=== PATIENT | female | born 1990 | race American Indian/Alaskan Native ===

== ENCOUNTER 2016-11-23 14:11 | Emergency (ER) | payer MEDICAID, OTHER ==
[2016-11-23 14:31] VITALS: BP 121/56
[2016-11-23] MEDS ORDERED: TORADOL IM ONE ×2 (15:21→15:50)
--- NOTE | 2016-11-23 15:42 | Emergency Department Report ---
ED General Adult HPI - General Chief complaint: Fall Stated complaint: MINO/BACK PAIN Time Seen by Provider: 11/23/16 15:02 Source: patient Mode of arrival: Ambulatory Limitations: No Limitations - History of Present Illness Initial comments: 26 year old female states that she slipped and fell, hitting her head and thoracic spine against the floor. states that she didnt have loc, NV, tinnitus. states intermittent headaches as well that are resolving. states that she is also having thoracic pain that radiates to her left chest region with chest tenderness. denies other injury. states that she is still sore today but not as bad. states taking otc medication with minor relief. -: Sudden, days(s) (7) Associated Symptoms: headaches. denies: confusion, cough, diaphoresis, fever/ chills, loss of appetite, malaise, nausea/vomiting, rash, seizure, shortness of breath, syncope, weakness - Related Data Home Medications Medication Instructions Recorded Confirmed Last Taken Meloxicam [Mobic] 15 mg PO DAILY 12/26/12 12/26/12 12/26/12 08:00 Previous Rx's Medication Instructions Recorded Last Taken Type Acetaminophen/Codeine [Tylenol #3] 1 tab PO Q6H PRN #12 tab 12/26/12 Unknown Rx Polymyxin B Sulf/Trimethoprim 1 drop OP QID #1 bottle 12/26/12 Unknown Rx [Polytrim Eye Drops 99440pzbpk/0.1%] Prednisone 2 tab PO QDAY #6 tablet 12/26/12 Unknown Rx Cyclobenzaprine [Flexeril] 10 mg PO TID PRN #20 tablet 11/23/16 Unknown Rx Diclofenac Sodium 75 mg PO BID #20 tablet. 11/23/16 Unknown Rx Allergies Allergy/AdvReac Type Severity Reaction Status Date / Time No Known Allergies Allergy Verified 11/23/16 14:18 ED Review of Systems ROS: Stated complaint: MINO/BACK PAIN Other details as noted in HPI Constitutional: denies: chills, fever Eyes: denies: eye pain, eye discharge, vision change ENT: denies: ear pain, throat pain Respiratory: denies: cough, shortness of breath, wheezing Cardiovascular: denies: chest pain, palpitations Endocrine: no symptoms reported Gastrointestinal: denies: abdominal pain, nausea, diarrhea Genitourinary: denies: urgency, dysuria, discharge Musculoskeletal: back pain, myalgia. denies: joint swelling, arthralgia Skin: denies: rash, lesions Neurological: headache. denies: weakness, paresthesias Psychiatric: denies: anxiety, depression Hematological/Lymphatic: denies: easy bleeding, easy bruising ED Past Medical Hx - Past Medical History Previous Medical History?: Yes Hx Arthritis: Yes (bilateral knees) Additional medical history: Spine fracture - Surgical History Past Surgical History?: No - Social History Smoking Status: Never Smoker Substance Use Type: Alcohol, Prescribed - Medications Home Medications: Home Medications Medication Instructions Recorded Confirmed Last Taken Type Acetaminophen/Codeine [Tylenol #3] 1 tab PO Q6H PRN #12 tab 12/26/12 Unknown Rx Meloxicam [Mobic] 15 mg PO DAILY 12/26/12 12/26/12 12/26/12 08:00 History Polymyxin B Sulf/Trimethoprim 1 drop OP QID #1 bottle 12/26/12 Unknown Rx [Polytrim Eye Drops 80747vpmum/0.1%] Prednisone 2 tab PO QDAY #6 tablet 12/26/12 Unknown Rx Cyclobenzaprine [Flexeril] 10 mg PO TID PRN #20 tablet 11/23/16 Unknown Rx Diclofenac Sodium 75 mg PO BID #20 tablet. 11/23/16 Unknown Rx ED Physical Exam - General Limitations: No Limitations General appearance: alert, in no apparent distress - Head Head exam: Present: atraumatic, normocephalic - Eye Eye exam: Present: normal appearance, PERRL. Absent: scleral icterus, periorbital swelling, periorbital tenderness - ENT ENT exam: Present: mucous membranes moist - Neck Neck exam: Present: normal inspection, full ROM. Absent: tenderness, lymphadenopathy, thyromegaly - Respiratory Respiratory exam: Present: normal lung sounds bilaterally, chest wall tenderness (left lateral chest wall point tenderness.). Absent: respiratory distress, wheezes, rales, rhonchi, stridor - Cardiovascular Cardiovascular Exam: Present: regular rate, normal rhythm. Absent: systolic murmur, diastolic murmur, rubs, gallop - GI/Abdominal GI/Abdominal exam: Present: soft, normal bowel sounds - Extremities Exam Extremities exam: Present: normal inspection - Back Exam Back exam: Present: normal inspection, full ROM, tenderness, paraspinal tenderness, vertebral tenderness (thoracic spine.) - Neurological Exam Neurological exam: Present: alert, oriented X3 - Psychiatric Psychiatric exam: Present: normal affect, normal mood - Skin Skin exam: Present: warm, dry, intact, normal color. Absent: rash ED Course Vital Signs 11/23/16 14:19 Temperature 98.4 F Pulse Rate 60 Respiratory 18 Rate Blood Pressure 121/56 O2 Sat by Pulse 100 Oximetry ED Medical Decision Making - Radiology Data Radiology results: image reviewed interpreted by me: thoracic XR is normal. - Medical Decision Making patient has normal thoracic XR. lung sounds are clear. VSS and NAD at this time. will start on diclofenac and flexeril. VSS for DC. Critical care attestation.: If time is entered above; I have spent that time in minutes in the direct care of this critically ill patient, excluding procedure time. ED Disposition Clinical Impression: Thoracic myofascial strain, Costal chondritis Disposition: DC- TO HOME OR SELFCARE Is pt being admited?: No Does the pt Need Aspirin: No Condition: Good Instructions: Muscle Strain (ED) Prescriptions: Cyclobenzaprine [Flexeril] 10 mg PO TID PRN #20 tablet PRN Reason: Muscle Spasm Diclofenac Sodium 75 mg PO BID #20 tablet. Referrals: PRIMARY CARE, [Primary Care Provider] - 3-5 Days Forms: Work/School Release Form(ED) Time of Disposition: 15:49
--- NOTE | 2016-11-23 16:12 | XRay Report ---
THORACIC SPINE RADIOGRAPHS INDICATION: Fall, vertebral tenderness. Upper back pain, shortness of breath. COMPARISON: None similar. FINDINGS: AP and lateral views to evaluate thoracic spine demonstrate preserved vertebral body stature and alignment. Normal disc heights. Symmetric pedicles. Intact costovertebral articulations. No abnormal paraspinal density. Normal imaged heart. Clear visualized lungs. CONCLUSION: Normal thoracic spine radiographs, as described. Thank you for the opportunity to participate in this patient's care.
== END 2016-11-23 15:55 | disposition home or self-care (01) ==
LOC: ED 14:11
DX: S29.012A Strain of muscle and tendon of back wall of thorax, initial encounter (principal); M94.0 Chondrocostal junction syndrome [Tietze]; M13.862 Other specified arthritis, left knee; M13.861 Other specified arthritis, right knee; W18.09XA Striking against other object with subsequent fall, initial encounter; Y93.89 Activity, other specified; Y99.8 Other external cause status; Y92.89 Other specified places as the place of occurrence of the external cause
CPT/HCPCS: 72072; 96372; 99283; J1885

== ENCOUNTER 2017-10-10 10:43 | Emergency (ER) | payer OTHER ==
[2017-10-10 10:54] VITALS: BP 108/74
[2017-10-10] MEDS ORDERED: PEPCID PO ONE (11:20)
[2017-10-10] MEDS ORDERED: DECADRON IM ONE (11:20)
--- NOTE | 2017-10-10 11:33 | Emergency Department Report ---
ED Rash HPI - HPI Duration: 4 Days Rash Symptoms: Yes Itching, No Facial Swelling, No Tongue/Oral Swelling, No Breathing Difficulties, No Choking Sensation, No Wheezing/Dyspnea, No Peeling, No Blistering, No Fever, No Lightheaded, No Malaise, No Myalgias Other History: This is a 27-year-old female nontoxic, well nourished in appearance, no acute signs of distress presents to the ED with c/o of rash and itching x4 days. Patient states she was taking Flagyl 4 days ago and developed this. Patient states it is itching and redness. Patient denies any drooling, hoarseness or facial swelling. Patient denies any trauma. She denies any fever , chills, nausea, vomiting, chest pain, shortness of breath, headache, stiff neck, numbness or tingling. Patient denies any allergies. Denies significant PMH. <SERGIO CANNON - Last Filed: 10/10/17 11:20> <JOSE CORLEY - Last Filed: 10/10/17 17:02> - HPI Chief Complaint: Skin Rash Stated Complaint: ALLERGIC REACTION/SWOLLEN RIGHT HAND Time Seen by Provider: 10/10/17 10:45 ED Review of Systems ROS: Stated complaint: ALLERGIC REACTION/SWOLLEN RIGHT HAND Other details as noted in HPI Constitutional: denies: chills, fever Eyes: denies: eye pain, eye discharge, vision change ENT: denies: ear pain, throat pain Respiratory: denies: cough, shortness of breath, wheezing Cardiovascular: denies: chest pain, palpitations Endocrine: no symptoms reported Gastrointestinal: denies: abdominal pain, nausea, diarrhea Genitourinary: denies: urgency, dysuria, discharge Musculoskeletal: denies: back pain, joint swelling, arthralgia Skin: rash. denies: lesions Neurological: denies: headache, weakness, paresthesias Psychiatric: denies: anxiety, depression Hematological/Lymphatic: denies: easy bleeding, easy bruising <SERGIO CANNON - Last Filed: 10/10/17 11:20> ROS: Stated complaint: ALLERGIC REACTION/SWOLLEN RIGHT HAND Other details as noted in HPI <JOSE CORLEY - Last Filed: 10/10/17 17:02> ED Past Medical Hx - Past Medical History Hx Arthritis: Yes (bilateral knees) Additional medical history: Spine fracture - Surgical History Past Surgical History?: No - Social History Smoking Status: Never Smoker Substance Use Type: None <SERGIO CANNON - Last Filed: 10/10/17 11:20> <JOSE CORLEY - Last Filed: 10/10/17 17:02> - Medications Home Medications: Home Medications Medication Instructions Recorded Confirmed Last Taken Type Acetaminophen/Codeine [Tylenol #3] 1 tab PO Q6H PRN #12 tab 12/26/12 Unknown Rx Meloxicam [Mobic] 15 mg PO DAILY 12/26/12 12/26/12 12/26/12 08:00 History Polymyxin B Sulf/Trimethoprim 1 drop OP QID #1 bottle 12/26/12 Unknown Rx [Polytrim Eye Drops 75627vxrag/0.1%] Prednisone 2 tab PO QDAY #6 tablet 12/26/12 Unknown Rx Cyclobenzaprine [Flexeril] 10 mg PO TID PRN #20 tablet 11/23/16 Unknown Rx Diclofenac Sodium 75 mg PO BID #20 tablet.dr 11/23/16 Unknown Rx Prednisone [predniSONE 10 mg 10 mg PO .TAPER #1 tab.ds.pk 10/10/17 Unknown Rx (6-Day Pack, 21 Tabs)] diphenhydrAMINE [Benadryl CAP] 25 mg PO Q6HR PRN #25 capsule 10/10/17 Unknown Rx Rash Exam - Exam General: Vital signs noted. No distress. Alert and acting appropriately. HEENT: No Periorbital Edema, No Conjuctival Injection, No Chemosis, No Perioral Edema, No Tongue Edema, No Uvular Edema, No Compromised Airway, No Drooling Lungs: Yes Good Air Exchange (Normal Breath Sounds), No Wheezes, No Ronchi, No Stridor, No Cough, No Labored Respirations, No Retractions, No Use of Accessory Muscles, No Other Abnormal Lung Sounds Heart: Yes Regular, No Murmur Skin: Yes Urticarial Rash, No Maculopapular Rash, No Morbilliform rash, No Bulla (e), No Excoriations, No Weeping, No Tenderness, No Erythema, No Edema, No Encrustations, No Other Other: Positive: Abdomen Normal, Neurologic Normal, Musculoskeletal Normal <SERGIO CANNON - Last Filed: 10/10/17 11:20> - Exam General: Vital signs noted. No distress. Alert and acting appropriately. <JOSE CORLEY - Last Filed: 10/10/17 17:02> ED Course Vital Signs 10/10/17 10:49 Temperature 98.2 F Pulse Rate 94 H Blood Pressure 108/74 O2 Sat by Pulse 100 Oximetry - Reevaluation(s) Reevaluation #1: 10/10/17 11:34 Patient is speaking in full sentences with no signs of distress noted. <SERGIO CANNON - Last Filed: 10/10/17 11:20> Vital Signs 10/10/17 10:49 Temperature 98.2 F Pulse Rate 94 H Blood Pressure 108/74 O2 Sat by Pulse 100 Oximetry <JOSE CORLEY - Last Filed: 10/10/17 17:02> ED Medical Decision Making - Medical Decision Making This is a 27-year-old female that presents with allergic reaction. Patient is stable was examined by me. There is no facial swelling. No angioedema. There is no cellulitis. No hoarseness. Patient received Decadron, and Pepcid in the ED IV. Patient is discharged with prednisone and Benadryl. Patient was referred to Follow-up with a primary care doctor in 3-5 days or if symptoms worsen and continue return to emergency room as soon as possible. At time of discharge, the patient does not seem toxic or ill in appearance. No acute signs of distress noted. Patient agrees to discharge treatment plan of care. No further questions noted by the patient. <SERGIO CANNON - Last Filed: 10/10/17 11:20> - Medical Decision Making I did not see this patient. I was available for consultation the entire time the patient was in the department. I have reviewed the C[facility] MESS/PAs note and agree with the plan. <JOSE CORLEY - Last Filed: 10/10/17 17:02> Critical care attestation.: If time is entered above; I have spent that time in minutes in the direct care of this critically ill patient, excluding procedure time. <SERGIO CANNON - Last Filed: 10/10/17 11:20> Critical care attestation.: If time is entered above; I have spent that time in minutes in the direct care of this critically ill patient, excluding procedure time. <JOSE CORLEY - Last Filed: 10/10/17 17:02> ED Disposition Is pt being admited?: No Does the pt Need Aspirin: No <SERGIO CANNON - Last Filed: 10/10/17 11:20> <JOSE CORLEY - Last Filed: 10/10/17 17:02> Disposition: DC-01 TO HOME OR SELFCARE Condition: Stable Instructions: Urticaria (ED) Additional Instructions: Follow-up with a primary care doctor in 3-5 days or if symptoms worsen and continue return to emergency room as soon as possible. Prescriptions: diphenhydrAMINE [Benadryl CAP] 25 mg PO Q6HR PRN #25 capsule PRN Reason: Itching Prednisone [predniSONE 10 mg (6-Day Pack, 21 Tabs)] 10 mg PO .TAPER #1 tab.ds.pk Referrals: PRIMARY CAREMD [Primary Care Provider] - 3-5 Days JOSE FORD MD [Staff Physician] - 3-5 Days [facility] [Outside] - 3-5 Days [facility] [Outside] - 3-5 Days Forms: Work/School Release Form(ED)
== END 2017-10-10 11:41 | disposition home or self-care (01) ==
LOC: ED 10:43
DX: T78.40XA Allergy, unspecified, initial encounter (principal); M17.0 Bilateral primary osteoarthritis of knee; X58.XXXA Exposure to other specified factors, initial encounter
CPT/HCPCS: 96372; 99282; J1100

== ENCOUNTER 2018-11-18 17:26 | Emergency (ER) | payer SELFPAY ==
--- NOTE | 2018-11-18 17:54 | Emergency Department Report ---
Blank Doc - Documentation Documentation: This is a 28-year-old female that presents with lower back pain. This initial assessment/diagnostic orders/clinical plan/treatment(s) is/are subject to change based on patient's health status, clinical progression and re- assessment by fellow clinical providers in the ED. Further treatment and workup at subsequent clinical providers discretion. Patient/guardians urged not to elope from the ED as their condition may be serious if not clinically assessed and managed. Initial orders include: 1- Patient sent to [facility] for further evaluation and treatment 2- xray
[2018-11-18 17:55] VITALS: BP 112/68
--- NOTE | 2018-11-18 18:53 | XRay Report ---
LUMBAR SPINE 3 VIEWS. INDICATION / CLINICAL INFORMATION: low back pain COMPARISON: None available. FINDINGS: BONES / JOINT(S): No acute fracture or subluxation. No significant arthritis. SOFT TISSUES: No significant abnormality. ADDITIONAL FINDINGS: None. Signer Name: Nir Patricio MD Signed: 11/18/2018 6:48 PM Workstation Name: [id number]
[2018-11-18] MEDS ORDERED: PERCOCET 5/325 PO STA (22:27)
--- NOTE | 2018-11-18 22:40 | Emergency Department Report ---
ED Back Pain/Injury HPI - General Chief Complaint: Back Pain/Injury Stated Complaint: BACK/SPINE PAIN/SOB Time Seen by Provider: 11/18/18 17:53 Source: patient Limitations: No Limitations - History of Present Illness Complaint: back pain -: Gradual Similar Symptoms Previously: No Place: home Radiation: none Severity: moderate Consistency: constant Improves With: none Worsens With: movement, sitting upright, walking Associated Symptoms: denies other symptoms - Related Data Home Medications Medication Instructions Recorded Confirmed Last Taken Meloxicam [Mobic] 15 mg PO DAILY 12/26/12 12/26/12 12/26/12 08:00 Previous Rx's Medication Instructions Recorded Last Taken Type Acetaminophen/Codeine [Tylenol #3] 1 tab PO Q6H PRN #12 tab 12/26/12 Unknown Rx Polymyxin B Sulf/Trimethoprim 1 drop OP QID #1 bottle 12/26/12 Unknown Rx [Polytrim Eye Drops 66432pafhi/0.1%] Prednisone 2 tab PO QDAY #6 tablet 12/26/12 Unknown Rx Cyclobenzaprine [Flexeril] 10 mg PO TID PRN #20 tablet 11/23/16 Unknown Rx Diclofenac Sodium 75 mg PO BID #20 tablet.dr 11/23/16 Unknown Rx Prednisone [predniSONE 10 mg 10 mg PO .TAPER #1 tab.ds.pk 10/10/17 Unknown Rx (6-Day Pack, 21 Tabs)] diphenhydrAMINE [Benadryl CAP] 25 mg PO Q6HR PRN #25 capsule 10/10/17 Unknown Rx Ketorolac [Toradol] 10 mg PO Q6H PRN #15 tablet 11/18/18 Unknown Rx methOCARBAMOL [Robaxin TAB] 750 mg PO Q8H PRN #14 tablet 11/18/18 Unknown Rx Allergies Allergy/AdvReac Type Severity Reaction Status Date / Time No Known Allergies Allergy Verified 10/10/17 10:53 ED Review of Systems ROS: Stated complaint: BACK/SPINE PAIN/SOB Other details as noted in HPI Comment: All other systems reviewed and negative ED Past Medical Hx - Past Medical History Spine fracture ED Back Pain Physical Exam - Exam General: Vital signs noted. No distress. Alert and acting appropriately. Back/Abdomen: Yes Perilumbar Tenderness (to the lumbar region with palpation. Is full range of motion.), No Abdominal Tenderness, No Perithoracic Tenderness, No Sacroiliac Tenderness, No Flank Tenderness, No Straight Leg Raise Pain Neuro: Yes Normal Sensation, Yes Normal DTR's, Yes Normal Gait, No Motor Weakness ED Course Vital Signs 11/18/18 17:53 Temperature 98.2 F Pulse Rate 67 Respiratory 18 Rate Blood Pressure 112/68 O2 Sat by Pulse 100 Oximetry Critical care attestation.: If time is entered above; I have spent that time in minutes in the direct care of this critically ill patient, excluding procedure time. ED Disposition Clinical Impression: Lumbago Disposition: DC-01 TO HOME OR SELFCARE Is pt being admited?: No Does the pt Need Aspirin: No Condition: Stable Instructions: Chronic Back Pain (ED), Lumbar Radiculopathy (ED) Prescriptions: methOCARBAMOL [Robaxin TAB] 750 mg PO Q8H PRN #14 tablet PRN Reason: Pain, Moderate (4-6) Ketorolac [Toradol] 10 mg PO Q6H PRN #15 tablet PRN Reason: Pain Referrals: [facility] MD JASMYNE [Primary Care Provider] - 3-5 Days
[2018-11-18] MEDS ORDERED: PERCOCET 5/325 ONE ×2 (22:57→23:03)
== END 2018-11-18 23:04 | disposition home or self-care (01) ==
LOC: ED 17:26
DX: M54.5 Low back pain (principal); Z79.899 Other long term (current) drug therapy
CPT/HCPCS: 72100

== ENCOUNTER 2018-12-19 16:15 | Emergency (ER) | payer SELFPAY ==
--- NOTE | 2018-12-19 16:39 | Emergency Department Report ---
Blank Doc - Documentation Documentation: 28-year-old female that presents with lower back pain. This initial assessment/diagnostic orders/clinical plan/treatment(s) is/are subject to change based on patient's health status, clinical progression and re- assessment by fellow clinical providers in the ED. Further treatment and workup at subsequent clinical providers discretion. Patient/guardians urged not to elope from the ED as their condition may be serious if not clinically assessed and managed. Initial orders include: 1- Patient sent to [facility] for further evaluation and treatment
[2018-12-19] MEDS ORDERED: PERCOCET 5/325 PO ONE (19:39)
[2018-12-19] MEDS ORDERED: ZOFRAN ODT PO ONE (19:40)
[2018-12-19] MEDS ORDERED: DECADRON IM ONE (19:40)
[2018-12-19] MEDS ORDERED: TORADOL IM ONE (19:40)
--- NOTE | 2018-12-19 20:32 | Emergency Department Report ---
ED Back Pain/Injury HPI - General Chief Complaint: Back Pain/Injury Stated Complaint: SEVERE BACK PAIN/MINO Time Seen by Provider: 12/19/18 16:38 Source: patient Limitations: No Limitations - History of Present Illness Initial Comments: Patient is a 28-year-old -[place] female with a history of chronic low back pain from an old injury presents to the ED with acute exacerbation of her chronic low back pain for the last 1 week. Patient states that her job entails being upright on her feet all day long and that usually after work the pain is worse. The patient stated that she has been taking Toradol and Robaxin at home with no relief. She denies dizziness, fall, traumatic injury, heavy lifting, nausea, vomiting, hematuria, dysuria, vaginal bleeding, abdominal pain, numbness and tingling or weakness of lower extremities bilaterally, saddle paresthesia, urinary or bowel incontinence. MD Complaint: back pain, other (muscle spasm of lower back) -: Gradual, year(s) (5) Similar Symptoms Previously: Yes (chronic low back pain) Place: home Radiation: none Severity: severe Severity scale (0 -10): 8 Quality: sharp, aching Consistency: constant Worsens With: movement, sitting upright, walking Context: turning/twisting, other (chronic muscle spasm) Associated Symptoms: denies other symptoms, difficulty walking (due to pain). denies: confusion, weakness, chest pain, numbness, difficulty urinating, diaphoresis, fever/chills, headaches, loss of appetite, malaise, nausea/vomiting, seizure, syncope Treatments Prior to Arrival: NSAIDS - Related Data Home Medications Medication Instructions Recorded Confirmed Last Taken Meloxicam [Mobic] 15 mg PO DAILY 12/26/12 12/26/12 12/26/12 08:00 Previous Rx's Medication Instructions Recorded Last Taken Type Acetaminophen/Codeine [Tylenol #3] 1 tab PO Q6H PRN #12 tab 12/26/12 Unknown Rx Polymyxin B Sulf/Trimethoprim 1 drop OP QID #1 bottle 12/26/12 Unknown Rx [Polytrim Eye Drops 02070mwecn/0.1%] Prednisone 2 tab PO QDAY #6 tablet 12/26/12 Unknown Rx Cyclobenzaprine [Flexeril] 10 mg PO TID PRN #20 tablet 11/23/16 Unknown Rx Diclofenac Sodium 75 mg PO BID #20 tablet. 11/23/16 Unknown Rx Prednisone [predniSONE 10 mg 10 mg PO .TAPER #1 tab.ds.pk 10/10/17 Unknown Rx (6-Day Pack, 21 Tabs)] diphenhydrAMINE [Benadryl CAP] 25 mg PO Q6HR PRN #25 capsule 10/10/17 Unknown Rx Ketorolac [Toradol] 10 mg PO Q6H PRN #15 tablet 11/18/18 Unknown Rx Ketorolac [Toradol] 10 mg PO Q8H PRN #20 tablet 12/19/18 Unknown Rx Prednisone [predniSONE 10 mg 10 mg PO .TAPER #21 tab.ds.pk 12/19/18 Unknown Rx (6-Day Pack, 21 Tabs)] methOCARBAMOL [Robaxin TAB] 750 mg PO Q8H PRN #24 tablet 12/19/18 Unknown Rx traMADol [Ultram] 50 mg PO Q6HR PRN #12 tablet 12/19/18 Unknown Rx Allergies Allergy/AdvReac Type Severity Reaction Status Date / Time No Known Allergies Allergy Verified 10/10/17 10:53 ED Review of Systems ROS: Stated complaint: SEVERE BACK PAIN/MINO Other details as noted in HPI Constitutional: denies: chills, fever Eyes: denies: eye pain, eye discharge, vision change ENT: denies: ear pain, throat pain Respiratory: denies: cough, shortness of breath, wheezing Cardiovascular: denies: chest pain, palpitations Endocrine: no symptoms reported Gastrointestinal: denies: abdominal pain, nausea, diarrhea Genitourinary: denies: urgency, dysuria, discharge Musculoskeletal: back pain, arthralgia. denies: joint swelling Skin: denies: rash, lesions Neurological: denies: headache, weakness, paresthesias Psychiatric: denies: anxiety, depression Hematological/Lymphatic: denies: easy bleeding, easy bruising ED Past Medical Hx - Past Medical History Hx Arthritis: Yes (bilateral knees) Additional medical history: Spine fracture - Surgical History Past Surgical History?: No - Social History Smoking Status: Never Smoker Substance Use Type: None - Medications Home Medications: Home Medications Medication Instructions Recorded Confirmed Last Taken Type Acetaminophen/Codeine [Tylenol #3] 1 tab PO Q6H PRN #12 tab 12/26/12 Unknown Rx Meloxicam [Mobic] 15 mg PO DAILY 09/12/26/12 12/26/12 08:00 History Polymyxin B Sulf/Trimethoprim 1 drop OP QID #1 bottle 12/26/12 Unknown Rx [Polytrim Eye Drops 37067juiga/0.1%] Prednisone 2 tab PO QDAY #6 tablet 12/26/12 Unknown Rx Cyclobenzaprine [Flexeril] 10 mg PO TID PRN #20 tablet 11/23/16 Unknown Rx Diclofenac Sodium 75 mg PO BID #20 tablet. 11/23/16 Unknown Rx Prednisone [predniSONE 10 mg 10 mg PO .TAPER #1 tab.ds.pk 10/10/17 Unknown Rx (6-Day Pack, 21 Tabs)] diphenhydrAMINE [Benadryl CAP] 25 mg PO Q6HR PRN #25 capsule 10/10/17 Unknown Rx Ketorolac [Toradol] 10 mg PO Q6H PRN #15 tablet 11/18/18 Unknown Rx Ketorolac [Toradol] 10 mg PO Q8H PRN #20 tablet 12/19/18 Unknown Rx Prednisone [predniSONE 10 mg 10 mg PO .TAPER #21 tab.ds.pk 12/19/18 Unknown Rx (6-Day Pack, 21 Tabs)] methOCARBAMOL [Robaxin TAB] 750 mg PO Q8H PRN #24 tablet 12/19/18 Unknown Rx traMADol [Ultram] 50 mg PO Q6HR PRN #12 tablet 12/19/18 Unknown Rx ED Physical Exam - General Limitations: No Limitations General appearance: alert, in no apparent distress - Head Head exam: Present: atraumatic, normocephalic, normal inspection - Eye Eye exam: Present: normal appearance, PERRL, EOMI Pupils: Present: normal accommodation - ENT ENT exam: Present: normal exam, normal orophraynx, mucous membranes moist, TM's normal bilaterally, normal external ear exam - Neck Neck exam: Present: normal inspection, full ROM. Absent: tenderness - Respiratory Respiratory exam: Present: normal lung sounds bilaterally. Absent: respiratory distress, wheezes, chest wall tenderness, accessory muscle use, prolonged expiratory - Cardiovascular Cardiovascular Exam: Present: regular rate, normal rhythm, normal heart sounds. Absent: systolic murmur, diastolic murmur, rubs, gallop - GI/Abdominal GI/Abdominal exam: Present: soft, normal bowel sounds. Absent: tenderness, guarding, hyperactive bowel sounds, hypoactive bowel sounds, organomegaly - Extremities Exam Extremities exam: Present: normal inspection, full ROM, normal capillary refill. Absent: tenderness - Back Exam Back exam: Present: normal inspection, tenderness (palpable severe lumbosacral paraspinal musculoskeletal tenderness with limited range of motion due to pain), muscle spasm, paraspinal tenderness. Absent: full ROM (limited due to pain) - Neurological Exam Neurological exam: Present: alert, oriented X3, CN II-XII intact, normal gait, reflexes normal - Psychiatric Psychiatric exam: Present: normal affect, normal mood - Skin Skin exam: Present: warm, dry, intact, normal color. Absent: rash ED Course Vital Signs 12/19/18 12/19/18 12/19/18 16:39 20:07 20:08 Temperature 98.6 F Pulse Rate 75 Respiratory 18 16 16 Rate Blood Pressure 105/68 Blood Pressure 105/68 [Right] O2 Sat by Pulse 100 Oximetry - Reevaluation(s) Reevaluation #1: 12/19/18 20:35 This is a 28-year-old female with chronic low back pain who presented to the ED with acute exacerbation of her chronic low back pain for a week. In the ED, patient is alert and oriented 3 and is not in distress. Patient was treated for pain and on reevaluation, patient's pain is well controlled on medications. Patient was discharged home on pain medications and advised to follow-up with her primary care physician in 5-7 days for reevaluation or return to the ED immediately if symptoms get worse. ED Medical Decision Making - Medical Decision Making This is a 28-year-old female with chronic low back pain who presented to the ED with acute exacerbation of her chronic low back pain for a week. In the ED, patient is alert and oriented 3 and is not in distress. Patient was treated for pain and on reevaluation, patient's pain is well controlled on medications. Patient was discharged home on pain medications and advised to follow-up with her primary care physician in 5-7 days for reevaluation or return to the ED immediately if symptoms get worse. - Differential Diagnosis Muscle spasm of back; sciatica; lumbar disc herniation; chronic pain Critical care attestation.: If time is entered above; I have spent that time in minutes in the direct care of this critically ill patient, excluding procedure time. ED Disposition Clinical Impression: Acute exacerbation of chronic low back pain, Spasm of muscle of lower back Disposition: - TO HOME OR SELFCARE Is pt being admited?: No Does the pt Need Aspirin: No Condition: Stable Instructions: Muscle Spasm (ED), Chronic Back Pain (ED) Additional Instructions: Take medications with food, drink plenty of fluids and follow up with your primary care physician in 5-7 days for reevaluation. Return to the ED immediately if symptoms get worse. Prescriptions: Prednisone [predniSONE 10 mg (6-Day Pack, 21 Tabs)] 10 mg PO .TAPER #21 tab.ds.pk methOCARBAMOL [Robaxin TAB] 750 mg PO Q8H PRN #24 tablet PRN Reason: Pain, Moderate (4-6) Ketorolac [Toradol] 10 mg PO Q8H PRN #20 tablet PRN Reason: Pain traMADol [Ultram] 50 mg PO Q6HR PRN #12 tablet PRN Reason: Pain Referrals: [facility] [Outside] - 3-5 Days Forms: Work/School Release Form(ED) Time of Disposition: 20:37 Print Language: EMIRATI
[2018-12-19 21:03] VITALS: BP 108/54
== END 2018-12-19 21:02 | disposition home or self-care (01) ==
LOC: ED 16:15
DX: M62.830 Muscle spasm of back (principal); G89.29 Other chronic pain; M54.5 Low back pain; M19.90 Unspecified osteoarthritis, unspecified site
CPT/HCPCS: 96372; 99282; J1100; J1885; Q0162